=== PATIENT | female | born 1970 | race Caucasian/White ===

== ENCOUNTER 2018-09-04 06:44 | Day surgery (SDC) | payer BC ==
[~2018-09-04 06:44] MED LIST: LIDOCAINE 3.5% GEL TUBE OPER; TETRACAINE 0.5% 4 ML OPH OPER
[2018-09-04] MEDS: LACTATED RINGER'S 1,000 ML IV (08:02)
[2018-09-04] MEDS: BROMFENAC SODIUM 1.7 ML OPH DROP OPER (08:03)
[2018-09-04] MEDS: PHENYLephrine 10% 5 ML OPH OPER (08:03)
[2018-09-04] MEDS: MOXIFLOXACIN 0.5% 3 ML OPH OPER (08:04)
[2018-09-04] MEDS: TROPICAMIDE 1% 15 ML OPH OPER ×2 (08:04→09:24)
[2018-09-04] MEDS: CYCLOPENTOLATE 2% 2 ML OPH OPER (08:04)
[2018-09-04] MEDS: LIDOCAINE 3.5% GEL TUBE OPER (08:07)
[2018-09-04] MEDS ORDERED: EPINEPHrine 1 MG INJ (08:49)
[2018-09-04] MEDS ORDERED: NA HYALURONATE/CHONDROITIN 0.5 ML SYG (08:50)
[2018-09-04] MEDS ORDERED: FENTAnyl 50 MCG/ML VIAL (09:12)
[2018-09-04] MEDS ORDERED: MIDAZOLAM 1 MG/ML 2 ML INJ (09:12)
[2018-09-04] MEDS ORDERED: LIDOCAINE 1%/EPI (1:100,000) (MDV) 20 ML (09:21)
[2018-09-04] MEDS: TETRACAINE 0.5% 4 ML OPH (09:23)
[2018-09-04] MEDS: LIDOCAINE 1%/EPI (1:100,000) (MDV) 20 ML (09:23)
[2018-09-04] MEDS ORDERED: LABETALOL HCL 20MG INJ IV (09:30)
[2018-09-04] MEDS ORDERED: ONDANSETRON 4 MG INJ IV (09:30)
[2018-09-04] MEDS ORDERED: OXYCODONE/ACETAMINOPHEN (5/325) TAB PO ×2 (09:30)
[2018-09-04] MEDS ORDERED: FENTAnyl 50 MCG/ML VIAL IV ×3 (09:30)
== END 2018-09-04 12:16 | disposition home or self-care (01) ==
LOC: SDS 06:44
DX: H25.21 Age-related cataract, morgagnian type, right eye (principal)
CPT/HCPCS: 66984; 84703